=== PATIENT | male | born 2000 | race African-American/Black ===

== ENCOUNTER 2019-03-18 23:18 | Emergency (ER) | payer OTHER ==
[~2019-03-18] VITALS: Ht 190.5 cm; Wt 95.4 kg
[2019-03-18 23:19] VITALS: BP 151/94
[2019-03-19] MEDS ORDERED: LIDOCAINE 1% SDV 5 ML VIAL DILUENT ONE
[2019-03-19] MEDS ORDERED: AZITHROMYCIN 250 MG TAB PO ONE
[2019-03-19] MEDS ORDERED: cefTRIAXone SOD 250 MG VIAL (J0696) IM ONE
[2019-03-19 01:14] LABS: CHLAMYDIA DNA AMPLIFICATION POSITIVE (NEGATIVE); GC DNA AMPLIFICATION NEGATIVE (NEGATIVE)
== END 2019-03-19 00:10 | disposition home or self-care (01) ==
LOC: M ED 23:18
DX: R36.9 Urethral discharge, unspecified (principal)
CPT/HCPCS: 87661; 96372; 99282; J0696